=== PATIENT | female | born 1990 | race Caucasian/White ===

== ENCOUNTER 2016-07-04 11:28 | Emergency (ER) | payer MEDICAID, SELFPAY ==
--- NOTE | 2016-07-04 12:58 | EDDOCDS ---
Physician Documentation [facility] Name: Jerry Parrish Age: 26 yrs Sex: Female : 1990 Arrival Date: 07/04/2016 Time: 11:28 Bed Triage 3 Private MD: NO PRIMARY PHYSICIAN, . Disposition: 07/04/16 12:47 Discharged to Home/Self Care. Impression: Streptococcal pharyngitis. - Condition is Stable. - Discharge Instructions: Strep Throat. - Prescriptions for Amoxicillin 875 mg Oral Tablet - take 1 tablet by ORAL route every 12 hours for 10 days; 20 tablet. Prednisone 20 mg Oral Tablet - take 2 tablets by ORAL route once daily for 4 days; 8 tablet. magic mouthwash Mucous Membrane Solution - as directed 5 milliliters by ORAL route 3-4 times daily As needed GARGLE, SWISH, SPIT. MAALOX, LIQUID BENADRYL, VISCOUS LIDOCAINE. 1:1:1; 237 milliliter. - Work Release Form - 2 day, Medication Reconciliation, Local Pharmacy Hours form. - Follow up: Emergency Department; When: As needed; Reason: Worsening of conditions. Follow up: [facility]; When: Call to arrange an appointment; Reason: Recheck today's complaints, Continuance of care, To establish care. - Problem is new. - Symptoms are unchanged. Historical: - Allergies: No known drug Allergies; - Home Meds: 1. Excedrin Extra Strength 250-250-65 mg Oral tab 2 tablets PRN (Last dose: 07/04/2016 04:00) - PMHx: none; - PSHx: none; - Social history: Smoking status: Patient uses tobacco products, light tobacco smoker. No barriers to communication noted, The patient speaks fluent Colombian, Speaks appropriately for age. - Family history: Not pertinent. - : The pt / caregiver states he / she is not on anticoagulants. Home medication list is obtained from the patient. - Exposure Risk Screening:: None identified. 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 7 in. (170.18 cm) (R); Pain 11/24; 11:30 Body Mass Index 32.89 (95.25 kg, 170.18 cm) elp MDM: 11:35 Strep Screen, Nursing ordered. dt4 Signatures: Kirsten Vilchis,RN RN ck1 Radha KeitaRN RN cj Lelo Dennis, DONG PANathanael dt4 MTDD
--- NOTE | 2016-07-04 12:58 | EDDOCDS ---
Nurse's Notes [facility] Name: Jerry Parrish Age: 26 yrs Sex: Female : 1990 Arrival Date: 07/04/2016 Time: 11:28 Bed Triage 3 Private MD: NO PRIMARY PHYSICIAN, . Diagnosis: Streptococcal pharyngitis Presentation: 07/04 11:32 Presenting complaint: Patient states: Swollen, sore throat for three days. Risk ck1 factors: Stridor is not present. Drooling is not present. Shortness of breath is not present. Cellulitis is not present. Adult Sepsis Screening: The patient does not have new or worsening altered mentation. Patient's respiratory rate is less than 22. Systolic blood pressure is greater than 100. Patient has a qSOFA score of 0- Negative Sepsis Screen. Suicide/Homicide risk assessment- the patient denies having any suicidal and/or homicidal ideations and does not present with any other emotional, behavioral or mental health complaints. 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 Transition of care: patient was not received from another setting of care. 11:32 Acuity: RAMON Level 4 ck1 11:32 Method Of Arrival: Walkin/Carried/Asstd ck1 Triage Assessment: 11:34 General: Appears in no apparent distress, comfortable, Behavior is appropriate for age, ck1 cooperative. Pain: Location: throat Pain currently is 6 out of 10 on a pain scale. HIV screening NA for this visit Offered previously. EENT: Throat has patchy exudate has enlarged tonsils bilaterally. Respiratory: Respiratory effort is unlabored, Respiratory pattern is regular, symmetrical. Derm: Skin is intact, is healthy with good turgor, Skin is pink, warm & dry. Musculoskeletal: No deficits noted. 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 Excedrin Extra Strength 250-250-65 mg Oral tab 2 tablets PRN (Last dose: 07/04/2016 04:00) - PMHx: none; - PSHx: none; - Social history: Smoking status: Patient uses tobacco products, light tobacco smoker. No barriers to communication noted, The patient speaks fluent Venezuelan, Speaks appropriately for age. - Family history: Not pertinent. - : The pt / caregiver states he / she is not on anticoagulants. Home medication list is obtained from the patient. - Exposure Risk Screening:: None identified. Screenin:09 Screening information is obtained from the patient. Fall risk: No risks identified. mlb1 Assistance ADL's: requires no assistance with activities of daily living. Abuse/DV Screen: The patient / caregiver reports he/she is: not in a situation that causes fear, pain or injury. Nutritional screening: No deficits noted. Advance Directives: Currently, there is no health care proxy. home support is adequate. Assessment: 12:09 General: Appears in no apparent distress, Behavior is appropriate for age, cooperative. mlb1 Pain: Location: left aspect of posterior pharynx and right aspect of posterior pharynx Pain currently is 8 out of 10 on a pain scale. EENT: Throat is reddened has patchy exudate has enlarged tonsils with gag reflex present. Respiratory: Airway. 12:56 General: reviewed discharge instructions, answered questions, relayed concerns to JOSELINE ridley and obtained work excuse per patient request, denies further needs. Vital Signs: 11:30 BP 120 / 78; Pulse 116; Resp 20; Temp 99.3(O); Pulse Ox 100% on R/A; Weight 95.25 kg elp (R); Height 5 ft. 7 in. (170.18 cm) (R); Pain 6/10; 11:30 Body Mass Index 32.89 (95.25 kg, 170.18 cm) elp Vitals: 11:30 Log In Time: July 04, 2016 at 11:28. elp 12:07 Strep Screen is obtained and tested: Positive. mlb1 ED Course: 11:30 Patient visited by Shonda Zhang PCA. elp 11:30 NO PRIMARY PHYSICIAN, . is Private Physician. elp 11:30 Patient moved to Waiting elp 11:31 Patient visited by Shonda Zhang PCA. elp 11:31 Patient moved to Pre RCE elp 11:32 Triage Initiated ck1 12:02 Patient moved to Triage 3 mlb1 12:07 Patient visited by Earle Sarabia RN. mlb1 12:10 No IV's were initiated during this patient's visit. No procedures done that require mlb1 assistance. 12:34 [facility] dt4 12:34 Jerson Cantu MD is Attending Physician. dt4 12:34 Patient visited by Lelo Dennis PA-C. dt4 12:45 [facility] is Referral Physician. dt4 12:56 The patient / caregiver is instructed regarding the plan of care and ED course. [facility] Order Results: There are currently no results for this order. Outcome: 12:47 Discharge ordered by Provider. dt4 12:56 Discharge Assessment: Patient awake, alert and oriented x 3. No cognitive and/or [facility] functional deficits noted. Patient verbalized understanding of disposition instructions. patient administered narcotics - no. The following High Risk Discharge criteria are identified: None. Discharged to home ambulatory, with significant other. Condition: good Condition: stable. Discharge instructions given to patient, Instructed on discharge instructions, follow up and referral plans. medication usage, Demonstrated understanding of instructions, medications, Pt was receptive of discharge instructions/ teaching. Prescriptions given X 3, Work note provided to patient. No special radiology studies were completed. Property :Personal belongings accompany Pt. 12:58 Patient left the ED. [facility] Signatures: Earle Sarabia RN RN mlb1 Kirsten Vilchis RN RN ck1 Radha KeitaRN RN [facility] Shonda Zhang, INSECTICIDE MIXER INSECTICIDE MIXER elp Lelo Dennis PA-C PA-C dt4 MTDD
--- NOTE | 2016-07-06 13:58 | EDDOCDS ---
Physician Documentation [facility] Name: Jerry Parrish Age: 26 yrs Sex: Female : 1990 Arrival Date: 07/04/2016 Time: 11:28 Bed Triage 3 Private MD: NO PRIMARY PHYSICIAN, . Disposition: 07/04/16 12:47 Discharged to Home/Self Care. Impression: Streptococcal pharyngitis. - Condition is Stable. - Discharge Instructions: Strep Throat. - Prescriptions for Amoxicillin 875 mg Oral Tablet - take 1 tablet by ORAL route every 12 hours for 10 days; 20 tablet. Prednisone 20 mg Oral Tablet - take 2 tablets by ORAL route once daily for 4 days; 8 tablet. magic mouthwash Mucous Membrane Solution - as directed 5 milliliters by ORAL route 3-4 times daily As needed GARGLE, SWISH, SPIT. MAALOX, LIQUID BENADRYL, VISCOUS LIDOCAINE. 1:1:1; 237 milliliter. - Work Release Form - 2 day, Medication Reconciliation, Local Pharmacy Hours form. - Follow up: Emergency Department; When: As needed; Reason: Worsening of conditions. Follow up: [facility]; When: Call to arrange an appointment; Reason: Recheck today's complaints, Continuance of care, To establish care. - Problem is new. - Symptoms are unchanged. Historical: - Allergies: No known drug Allergies; - Home Meds: 1. Excedrin Extra Strength 250-250-65 mg Oral tab 2 tablets PRN (Last dose: 07/04/2016 04:00) - PMHx: none; - PSHx: none; - Social history: Smoking status: Patient uses tobacco products, light tobacco smoker. No barriers to communication noted, The patient speaks fluent Mozambican, Speaks appropriately for age. - Family history: Not pertinent. - : The pt / caregiver states he / she is not on anticoagulants. Home medication list is obtained from the patient. - Exposure Risk Screening:: None identified. 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 7 in. (170.18 cm) (R); Pain 6/10; 11:30 Body Mass Index 32.89 (95.25 kg, 170.18 cm) elp MDM: 11:35 Strep Screen, Nursing ordered. dt4 13:01 Financial registration complete. mm15 15:09 T-Sheet-- Draft Copy was scanned into [employer] and attached to record. gb 15:23 ON LICENSE OF [facility] Payment Agreement was scanned into [employer] and attached to record. mm15 Signatures: Deborah Pichardo, Reg Reg gb Genie-Kirsten Webb,RN RN ck1 Radha KeitaRN RN [facility] Zhao Grayson mm15 Lelo Dennis PA-C PA-C dt4 The chart was reviewed and I authenticate all verbal orders and agree with the evaluation and treatment provided.Attachments: 15:09 T-Sheet-- Draft Copy gb 15:23 ON LICENSE OF [facility] Payment Agreement mm15 Chart Complete MTDD
--- NOTE | 2016-07-06 13:58 | EDDOCDS ---
Nurse's Notes [facility] Name: Jerry Parrish Age: 26 yrs Sex: Female : 1990 Arrival Date: 07/04/2016 Time: 11:28 Bed Triage 3 Private MD: NO PRIMARY PHYSICIAN, . Diagnosis: Streptococcal pharyngitis Presentation: 07/04 11:32 Presenting complaint: Patient states: Swollen, sore throat for three days. Risk ck1 factors: Stridor is not present. Drooling is not present. Shortness of breath is not present. Cellulitis is not present. Adult Sepsis Screening: The patient does not have new or worsening altered mentation. Patient's respiratory rate is less than 22. Systolic blood pressure is greater than 100. Patient has a qSOFA score of 0- Negative Sepsis Screen. Suicide/Homicide risk assessment- the patient denies having any suicidal and/or homicidal ideations and does not present with any other emotional, behavioral or mental health complaints. Status: Patient is not a field services analyst or dependent. Transition of care: patient was not received from another setting of care. 11:32 Acuity: RAMON Level 4 ck1 11:32 Method Of Arrival: Walkin/Carried/Asstd ck1 Triage Assessment: 11:34 General: Appears in no apparent distress, comfortable, Behavior is appropriate for age, ck1 cooperative. Pain: Location: throat Pain currently is 6 out of 10 on a pain scale. HIV screening NA for this visit Offered previously. EENT: Throat has patchy exudate has enlarged tonsils bilaterally. Respiratory: Respiratory effort is unlabored, Respiratory pattern is regular, symmetrical. Derm: Skin is intact, is healthy with good turgor, Skin is pink, warm & dry. Musculoskeletal: No deficits noted. 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 Excedrin Extra Strength 250-250-65 mg Oral tab 2 tablets PRN (Last dose: 07/04/2016 04:00) - PMHx: none; - PSHx: none; - Social history: Smoking status: Patient uses tobacco products, light tobacco smoker. No barriers to communication noted, The patient speaks fluent Sao Tomean, Speaks appropriately for age. - Family history: Not pertinent. - : The pt / caregiver states he / she is not on anticoagulants. Home medication list is obtained from the patient. - Exposure Risk Screening:: None identified. Screenin:09 Screening information is obtained from the patient. Fall risk: No risks identified. mlb1 Assistance ADL's: requires no assistance with activities of daily living. Abuse/DV Screen: The patient / caregiver reports he/she is: not in a situation that causes fear, pain or injury. Nutritional screening: No deficits noted. Advance Directives: Currently, there is no health care proxy. home support is adequate. Assessment: 12:09 General: Appears in no apparent distress, Behavior is appropriate for age, cooperative. mlb1 Pain: Location: left aspect of posterior pharynx and right aspect of posterior pharynx Pain currently is 8 out of 10 on a pain scale. EENT: Throat is reddened has patchy exudate has enlarged tonsils with gag reflex present. Respiratory: Airway. 12:56 General: reviewed discharge instructions, answered questions, relayed concerns to JOSELINE ridley and obtained work excuse per patient request, denies further needs. Vital Signs: 11:30 BP 120 / 78; Pulse 116; Resp 20; Temp 99.3(O); Pulse Ox 100% on R/A; Weight 95.25 kg elp (R); Height 5 ft. 7 in. (170.18 cm) (R); Pain 6/10; 11:30 Body Mass Index 32.89 (95.25 kg, 170.18 cm) elp Vitals: 11:30 Log In Time: July 04, 2016 at 11:28. elp 12:07 Strep Screen is obtained and tested: Positive. mlb1 ED Course: 11:30 Patient visited by Shonda Zhang PCA. elp 11:30 NO PRIMARY PHYSICIAN, . is Private Physician. elp 11:30 Patient moved to Waiting elp 11:31 Patient visited by Shonda Zhang PCA. elp 11:31 Patient moved to Pre RCE elp 11:32 Triage Initiated ck1 12:02 Patient moved to Triage 3 mlb1 12:07 Patient visited by Earle Sarabia RN. mlb1 12:10 No IV's were initiated during this patient's visit. No procedures done that require mlb1 assistance. 12:34 Lelo Dennis [facility]C [facility]. dt4 12:34 Jerson Cantu MD is Attending Physician. dt4 12:34 Patient visited by Lelo Dennis PA-C. dt4 12:45 [facility] is Referral Physician. dt4 12:56 The patient / caregiver is instructed regarding the plan of care and ED course. [facility] 15:09 T-Sheet-- Draft Copy was scanned into [employer] and attached to record. 15:23 [facility] Payment Agreement was scanned into [employer] and attached to record. mm15 Order Results: There are currently no results for this order. Outcome: 12:47 Discharge ordered by Provider. dt4 12:56 Discharge Assessment: Patient awake, alert and oriented x 3. No cognitive and/or [facility] functional deficits noted. Patient verbalized understanding of disposition instructions. patient administered narcotics - no. The following High Risk Discharge criteria are identified: None. Discharged to home ambulatory, with significant other. Condition: good Condition: stable. Discharge instructions given to patient, Instructed on discharge instructions, follow up and referral plans. medication usage, Demonstrated understanding of instructions, medications, Pt was receptive of discharge instructions/ teaching. Prescriptions given X 3, Work note provided to patient. No special radiology studies were completed. Property :Personal belongings accompany Pt. 12:58 Patient left the ED. [facility] Signatures: Deborah Pichardo, Reg Reg Earle Sarabia RN RN mlb1 Kirsten Vilchis RN RN ck1 Radha Keita RN RN [facility] Zhao Grayson mm15 Patchen, Shonda, RIVET HEATER GAS RIVET HEATER GAS elp Lelo Dennis PA-C PA-C dt4 Chart Complete MTDD
--- NOTE | 2016-07-06 13:59 | EDDOCDS ---
Physician Documentation [facility] Name: Jerry Parrish Age: 26 yrs Sex: Female : 1990 Arrival Date: 07/04/2016 Time: 11:28 Bed Triage 3 Private MD: NO PRIMARY PHYSICIAN, . Disposition: 07/04/16 12:47 Discharged to Home/Self Care. Impression: Streptococcal pharyngitis. - Condition is Stable. - Discharge Instructions: Strep Throat. - Prescriptions for Amoxicillin 875 mg Oral Tablet - take 1 tablet by ORAL route every 12 hours for 10 days; 20 tablet. Prednisone 20 mg Oral Tablet - take 2 tablets by ORAL route once daily for 4 days; 8 tablet. magic mouthwash Mucous Membrane Solution - as directed 5 milliliters by ORAL route 3-4 times daily As needed GARGLE, SWISH, SPIT. MAALOX, LIQUID BENADRYL, VISCOUS LIDOCAINE. 1:1:1; 237 milliliter. - Work Release Form - 2 day, Medication Reconciliation, Local Pharmacy Hours form. - Follow up: Emergency Department; When: As needed; Reason: Worsening of conditions. Follow up: [facility]; When: Call to arrange an appointment; Reason: Recheck today's complaints, Continuance of care, To establish care. - Problem is new. - Symptoms are unchanged. Historical: - Allergies: No known drug Allergies; - Home Meds: 1. Excedrin Extra Strength 250-250-65 mg Oral tab 2 tablets PRN (Last dose: 07/04/2016 04:00) - PMHx: none; - PSHx: none; - Social history: Smoking status: Patient uses tobacco products, light tobacco smoker. No barriers to communication noted, The patient speaks fluent Swedish, Speaks appropriately for age. - Family history: Not pertinent. - : The pt / caregiver states he / she is not on anticoagulants. Home medication list is obtained from the patient. - Exposure Risk Screening:: None identified. 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 7 in. (170.18 cm) (R); Pain 6/10; 11:30 Body Mass Index 32.89 (95.25 kg, 170.18 cm) elp MDM: 11:35 Strep Screen, Nursing ordered. dt4 13:01 Financial registration complete. mm15 15:09 T-Sheet-- Draft Copy was scanned into [employer] and attached to record. gb 15:23 [facility] Payment Agreement was scanned into [employer] and attached to record. mm15 Signatures: Deborah Pichardo, Reg Reg gb Genie-Kirsten Webb,RN RN ck1 Radha KeitaRN RN [facility] Zhao Grayson mm15 Lelo Dennis PA-C PA-C dt4 The chart was reviewed and I authenticate all verbal orders and agree with the evaluation and treatment provided.Attachments: 15:09 T-Sheet-- Draft Copy gb 15:23 [facility] Payment Agreement mm15 Chart Complete MTDD
== END 2016-07-04 12:58 | disposition home or self-care (01) ==
LOC: M ED 11:28
DX: J02.0 Streptococcal pharyngitis (principal); F17.200 Nicotine dependence, unspecified, uncomplicated

== ENCOUNTER → 2017-12-04 | Outpatient (REF) | payer MEDICAID ==
[2017-12-04 13:33] LABS: ALBUMIN/GLOBULIN RATIO 1.11 (1.00-1.93); ALKALINE PHOSPHATASE 84 U/L (45-117); ALT/SGPT 73 U/L (12-78); ANION GAP 12 MEQ/L (8-16); AST/SGOT 26 U/L (7-37); BILIRUBIN,TOTAL 0.4 MG/DL (0.2-1.0); BLOOD UREA NITROGEN 10 MG/DL (7-18); CALCIUM LEVEL 8.6 MG/DL (8.5-10.1); CARBON DIOXIDE LEVEL 23 MEQ/L (21-32); CHLORIDE LEVEL 106 MEQ/L (98-107); CREATININE FOR GFR 0.66 MG/DL (0.55-1.30); GLOMERULAR FILTRATION RATE > 60.0 (>60); GLUCOSE, FASTING 89 MG/DL (70-100); POTASSIUM SERUM 4.2 MEQ/L (3.5-5.1); SODIUM LEVEL 141 MEQ/L (136-145); TOTAL PROTEIN 7.6 GM/DL (6.4-8.2)
== END ==
LOC: M LAB REF 12:30
DX: Z13.29 Encounter for screening for other suspected endocrine disorder (principal)

== ENCOUNTER → 2017-12-12 | Outpatient (CLI) | payer MEDICAID | LOC: M RAD 14:03 | DX: Z30.431 Encounter for routine checking of intrauterine contraceptive device (principal) | CPT/HCPCS: 76856 ==

== ENCOUNTER 2018-04-27 14:31 | Emergency (ER) | payer OTHER, MEDICAID ==
[2018-04-27 15:15] LABS: BASO % 0.5 % (0.0-1.0); EOS # 0.3 10^3/uL (0.0-0.50); EOS % 4.1 % (0.0-3.0); HEMATOCRIT 44.5 % (36.0-47.0); HEMOGLOBIN 14.9 g/dl (12.0-15.5); IMMATURE GRANULOCYTE % 0.2 % (0-3.0); LYMPH # 2.6 10^3/uL (1.5-6.5); LYMPH % 30.9 % (24.0-44.0); MEAN CORPUSCULAR HEMOGLOBIN 30.1 pg (27.0-33.0); MEAN CORPUSCULAR HGB CONC 33.5 g/dl (32.0-36.5); MEAN CORPUSCULAR VOLUME 89.9 fl (80.0-96.0); MONO # 0.4 10^3/uL (0.0-0.8); MONO % 4.3 % (0.0-5.0); PLATELET COUNT, AUTOMATED 282 10^3/uL (150-450); RED BLOOD COUNT 4.95 10^6/uL (4.00-5.40); RED CELL DISTRIBUTION WIDTH 12.3 % (11.5-14.5); WHITE BLOOD COUNT 8.4 10^3/uL (4.0-10.0)
[2018-04-27 15:28] LABS: D-DIMER QUANT 334.3 ng/ml (<500)
[2018-04-27 15:39] LABS: CONTROL LINE HCG INT CTR LINE PRESENT; HCG, SERUM QUALITATIVE NEGATIVE (NEGATIVE)
[2018-04-27 15:48] LABS: ALBUMIN 4.1 GM/DL (3.2-5.2); ALBUMIN/GLOBULIN RATIO 1.28 (1.00-1.93); ALKALINE PHOSPHATASE 89 U/L (45-117); ALT/SGPT 27 U/L (12-78); ANION GAP 6 MEQ/L (8-16); AST/SGOT 13 U/L (7-37); BILIRUBIN,DIRECT < 0.1 MG/DL (0.0-0.2); BILIRUBIN,TOTAL 0.4 MG/DL (0.2-1.0); BLOOD UREA NITROGEN 10 MG/DL (7-18); CALCIUM LEVEL 8.8 MG/DL (8.5-10.1); CARBON DIOXIDE LEVEL 26 MEQ/L (21-32); CHLORIDE LEVEL 108 MEQ/L (98-107); CK-MB VALUE MASS < 1.0 NG/ML (<3.6); CPK CREATINE PHOSPHOKINASE 58 U/L (26-192); CREATININE FOR GFR 0.62 MG/DL (0.55-1.30); GLOMERULAR FILTRATION RATE > 60.0 (>60); GLUCOSE, FASTING 74 MG/DL (70-100); MB/CK RELATIVE INDEX 1.72 (< OR =4); POTASSIUM SERUM 4.2 MEQ/L (3.5-5.1); SODIUM LEVEL 140 MEQ/L (136-145); TOTAL PROTEIN 7.3 GM/DL (6.4-8.2); TROPONIN I < 0.02 NG/ML (< 0.10)
== END 2018-04-27 16:15 | disposition home or self-care (01) ==
LOC: M ED 14:31
DX: F41.9 Anxiety disorder, unspecified (principal); F33.9 Major depressive disorder, recurrent, unspecified; Z79.899 Other long term (current) drug therapy; F17.210 Nicotine dependence, cigarettes, uncomplicated
CPT/HCPCS: 71046

== ENCOUNTER → 2018-04-30 | Outpatient (REF) | payer OTHER ==
[2018-04-30 19:04] LABS: ALBUMIN 3.8 GM/DL (3.2-5.2); ALBUMIN/GLOBULIN RATIO 1.19 (1.00-1.93); ALKALINE PHOSPHATASE 87 U/L (45-117); ALT/SGPT 37 U/L (12-78); ANION GAP 5 MEQ/L (8-16); AST/SGOT 19 U/L (7-37); BILIRUBIN,TOTAL 0.3 MG/DL (0.2-1.0); BLOOD UREA NITROGEN 12 MG/DL (7-18); CALCIUM LEVEL 8.7 MG/DL (8.5-10.1); CARBON DIOXIDE LEVEL 26 MEQ/L (21-32); CHLORIDE LEVEL 107 MEQ/L (98-107); CREATININE FOR GFR 0.56 MG/DL (0.55-1.30); GLOMERULAR FILTRATION RATE > 60.0 (>60); GLUCOSE, FASTING 90 MG/DL (70-100); POTASSIUM SERUM 3.9 MEQ/L (3.5-5.1); SODIUM LEVEL 138 MEQ/L (136-145)
[2018-04-30 19:14] LABS: FOLATE 8.7 NG/ML (>5.4); TOTAL 25(OH) VITAMIN D 12.6 NG/ML (30.0-100.0); VITAMIN B12 LEVEL 531 PG/ML (247-911)
== END ==
LOC: M LAB REF 18:42
DX: Z13.9 Encounter for screening, unspecified (principal); R20.0 Anesthesia of skin

== ENCOUNTER 2021-12-29 16:38 | Emergency (ER) | payer OTHER ==
[~2021-12-29] VITALS: Ht 170.2 cm; Wt 90.8 kg
[~2021-12-29 16:38] MED LIST: HYDR1CAP25 PO; LEXA1TAB2 PO
[2021-12-29 17:48] LABS: BASO % 0.4 % (0.0-1.0); EOS # 0.5 10^3/uL (0.0-0.5); EOS % 4.5 % (0.0-3.0); HEMATOCRIT 43.1 % (36.0-47.0); HEMOGLOBIN 14.6 g/dl (12.0-15.5); LYMPH # 2.8 10^3/uL (1.5-5.0); LYMPH % 25.5 % (24.0-44.0); MEAN CORPUSCULAR HGB CONC 33.9 g/dl (32.0-36.5); MEAN CORPUSCULAR VOLUME 88.5 fl (80.0-96.0); MONO # 0.6 10^3/uL (0.0-0.8); MONO % 5.1 % (2.0-8.0); NEUTROPHILS # 7.1 10^3/uL (1.5-8.5); NEUTROPHILS % 64.2 % (36.0-66.0); PLATELET COUNT, AUTOMATED 268 10^3/uL (150-450); RED BLOOD COUNT 4.87 10^6/uL (4.00-5.40)
[2021-12-29 18:18] LABS: HCG, SERUM QUALITATIVE NEGATIVE (NEGATIVE)
[2021-12-29 18:25] LABS: ALBUMIN 3.9 GM/DL (3.2-5.2); ALT/SGPT 29 U/L (12-78); BILIRUBIN,DIRECT 0.2 MG/DL (0.0-0.2); BILIRUBIN,TOTAL 0.3 MG/DL (0.2-1.0); BLOOD UREA NITROGEN 8 MG/DL (7-18); CALCIUM LEVEL 8.9 MG/DL (8.5-10.1); CARBON DIOXIDE LEVEL 23 MEQ/L (21-32); CHLORIDE LEVEL 112 MEQ/L (98-107); CREATININE FOR GFR 0.64 MG/DL (0.55-1.30); GLOMERULAR FILTRATION RATE > 60.0 (>60); GLUCOSE, FASTING 87 MG/DL (70-100); LIPASE 261 U/L (73-393); POTASSIUM SERUM 3.7 MEQ/L (3.5-5.1); SODIUM LEVEL 143 MEQ/L (136-145); TOTAL PROTEIN 7.2 GM/DL (6.4-8.2)
[2021-12-29] MEDS ORDERED: PANTOPRAZOLE 40MG VIAL IV ONE (20:25)
[2021-12-29] MEDS ORDERED: ONDANSETRON 4MG 2ML VIAL IV ONE (20:25)
[2021-12-29] MEDS ORDERED: NS 1,000 ML IV ONE (20:25)
[2021-12-29] MEDS ORDERED: ISOVUE-370 76% 100ML VIAL As Ordered ONE (20:27)
[2021-12-29 22:50] VITALS: BP 107/63
[2021-12-29] MEDS ORDERED: HYDR50TA70 PO (23:23)
[2021-12-29] MEDS ORDERED: PROT1TAB2 PO (23:23)
[2021-12-29] MEDS ORDERED: ONDA4TAB6 PO (23:23)
== END 2021-12-29 23:54 | disposition home or self-care (01) ==
LOC: M ED 16:38
DX: K29.70 Gastritis, unspecified, without bleeding (principal); F41.9 Anxiety disorder, unspecified; F31.9 Bipolar disorder, unspecified; F43.10 Post-traumatic stress disorder, unspecified; Z79.899 Other long term (current) drug therapy
CPT/HCPCS: 74177; 80048; 80076; 81001; 83690; 84703; 85025; 96361; 96374; 96375; 99284; C9113; J2405; Q9967

== ENCOUNTER 2022-07-10 01:29 | Observation (INO) | payer OTHER ==
[~2022-07-10] VITALS: Ht 170.2 cm; Wt 88.6 kg
[~2022-07-10 01:29] MED LIST changes: +HYDR50TA70 PO; +ONDA4TAB6 PO; +PROT1TAB2 PO
[2022-07-10 02:18] LABS: BASO % 0.3 % (0.0-1.0); EOS # 0.2 10^3/uL (0.0-0.5); EOS % 1.7 % (0.0-3.0); HEMATOCRIT 45.3 % (36.0-47.0); HEMOGLOBIN 15.2 g/dl (12.0-15.5); LYMPH # 1.9 10^3/uL (1.5-5.0); LYMPH % 15.1 % (24.0-44.0); MEAN CORPUSCULAR HEMOGLOBIN 30.1 pg (27.0-33.0); MEAN CORPUSCULAR HGB CONC 33.6 g/dl (32.0-36.5); MEAN CORPUSCULAR VOLUME 89.7 fl (80.0-96.0); MONO # 0.6 10^3/uL (0.0-0.8); MONO % 4.5 % (2.0-8.0); NEUTROPHILS # 9.9 10^3/uL (1.5-8.5); NEUTROPHILS % 77.9 % (36.0-66.0); PLATELET COUNT, AUTOMATED 304 10^3/uL (150-450); RED BLOOD COUNT 5.05 10^6/uL (4.00-5.40); WHITE BLOOD COUNT 12.7 10^3/uL (4.0-10.0)
[2022-07-10 02:40] LABS: LIPASE 42 U/L (12-53)
[2022-07-10 02:41] LABS: HCG, SERUM QUALITATIVE NEGATIVE (NEGATIVE)
[2022-07-10 02:42] LABS: BILIRUBIN,DIRECT 1.7 MG/DL (<0.4)
[2022-07-10 02:43] LABS: ALBUMIN 4.3 G/DL (3.2-5.2); ALKALINE PHOSPHATASE 147 U/L (46-116); ALT/SGPT 749 U/L (7.0-40); AST/SGOT 470 U/L (<34); BLOOD UREA NITROGEN 11 MG/DL (9-23); CALCIUM LEVEL 9.3 MG/DL (8.5-10.1); CARBON DIOXIDE LEVEL 23 MMOL/L (20-31); CHLORIDE LEVEL 104 MMOL/L (98-107); GLOMERULAR FILTRATION RATE > 60.0 (>60); GLUCOSE, FASTING 117 MG/DL (60-100); POTASSIUM SERUM 3.6 MMOL/L (3.5-5.1); SODIUM LEVEL 139 MMOL/L (136-145); TOTAL PROTEIN 7.9 G/DL (5.7-8.2)
[2022-07-10] MEDS ORDERED: MORPHINE 4 MG/ML 1ML VIAL IV ONE (04:40)
[2022-07-10] MEDS ORDERED: ISOVUE-370 76% 100ML VIAL As Ordered ONE (04:40)
[2022-07-10] MEDS ORDERED: ONDANSETRON 4MG 2ML VIAL IV ONE ×2 (04:40→07:55)
[2022-07-10] MEDS ORDERED: NS 1,000 ML IV ONE (04:40)
[2022-07-10] MEDS ORDERED: PIPERACILLIN/TAZOBACTAM SOD 3.375 GM in D5W MINI-BAG PLUS 50 ML IV ONE (07:30)
[2022-07-10] MEDS: MORPHINE 2 MG/ML 1ML VIAL IV PRN ×2 (08:09→12:27)
[2022-07-10] MEDS ORDERED: HOME MED LIST COMPLETE! XX SCH (12:05)
[2022-07-10] MEDS: LR 1,000 ML IV SCH ×4 (12:15→21:42)
[2022-07-10] MEDS ORDERED: ONDANSETRON 4MG 2ML VIAL IV PRN ×2 (13:40→18:30)
[2022-07-10] MEDS ORDERED: MORPHINE 4 MG/ML 1ML VIAL IV PRN (13:40)
[2022-07-10] MEDS ORDERED: ISOVUE-300 61% 100ML VIAL As Ordered ONE (13:44)
[2022-07-10] MEDS: PIPERACILLIN/TAZOBACTAM SOD 3.375 GM in D5W MINI-BAG PLUS 50 ML IV SCH ×2 (14:53→21:42)
[2022-07-10] MEDS ORDERED: fentaNYL 100 MCG/2 ML INJECTION As Ordered ONE (15:41)
[2022-07-10] MEDS ORDERED: propofoL 200 MG/20 ML VIAL As Ordered ONE (15:41)
[2022-07-10] MEDS ORDERED: LIDOCAINE 2% 100MG/5ML SDV (FOR ANES.) As Ordered ONE (15:41)
[2022-07-10] MEDS ORDERED: MIDAZOLAM INJ 2MG/2ML VIAL As Ordered ONE (15:41)
[2022-07-10] MEDS ORDERED: ROCURONIUM BROMIDE 50MG/5ML VIAL As Ordered ONE (15:41)
[2022-07-10] MEDS ORDERED: ONDANSETRON 4MG 2ML VIAL As Ordered ONE (17:27)
[2022-07-10] MEDS ORDERED: KETOROLAC 60MG 2ML VIAL As Ordered ONE (17:27)
[2022-07-10] MEDS ORDERED: SUGAMMADEX SODIUM 500 MG/5 ML VIAL (BRIDION) As Ordered ONE (17:32)
[2022-07-10] MEDS ORDERED: ACETAMINOPHEN 1000MG 100ML IV BAG As Ordered ONE (17:34)
[2022-07-10] MEDS ORDERED: METOCLOPRAMIDE INJ 10MG/2ML VIAL IV PRN (18:30)
[2022-07-10] MEDS ORDERED: LR 1,000 ML IV SCH (18:30)
[2022-07-10] MEDS ORDERED: oxyCODONE 5MG TAB PO PRN (18:30)
[2022-07-10] MEDS ORDERED: fentaNYL 100 MCG/2 ML INJECTION IV PRN (18:30)
[2022-07-10 20:00] VITALS: BP 117/70
[2022-07-10 20:30] VITALS: BP 106/55
[2022-07-10 21:00] VITALS: BP 120/66
[2022-07-10 22:00] VITALS: BP 108/58
[2022-07-10 23:00] VITALS: BP 119/66
[2022-07-11] VITALS: BP 120/65
[2022-07-11 01:00] VITALS: BP 118/58
[2022-07-11] MEDS: PIPERACILLIN/TAZOBACTAM SOD 3.375 GM in D5W MINI-BAG PLUS 50 ML IV SCH ×2 (02:12→09:00)
[2022-07-11 04:00] VITALS: BP 111/57
[2022-07-11] MEDS: LR 1,000 ML IV SCH (05:33)
[2022-07-11 06:17] LABS: HEMATOCRIT 36.3 % (36.0-47.0); MEAN CORPUSCULAR HEMOGLOBIN 30.6 pg (27.0-33.0); MEAN CORPUSCULAR HGB CONC 33.3 g/dl (32.0-36.5); MEAN CORPUSCULAR VOLUME 91.9 fl (80.0-96.0); PLATELET COUNT, AUTOMATED 204 10^3/uL (150-450); RED BLOOD COUNT 3.95 10^6/uL (4.00-5.40); WHITE BLOOD COUNT 10.3 10^3/uL (4.0-10.0)
[2022-07-11 06:19] LABS: HEMOGLOBIN 12.1 g/dl (12.0-15.5)
[2022-07-11 06:26] LABS: ALBUMIN 3.1 G/DL (3.2-5.2); ALKALINE PHOSPHATASE 120 U/L (46-116); ALT/SGPT 506 U/L (7.0-40); AST/SGOT 118 U/L (<34); BILIRUBIN,TOTAL 1.2 MG/DL (0.3-1.2); BLOOD UREA NITROGEN 9 MG/DL (9-23); CARBON DIOXIDE LEVEL 23 MMOL/L (20-31); CHLORIDE LEVEL 106 MMOL/L (98-107); CREATININE FOR GFR 0.64 MG/DL (0.55-1.30); GLOMERULAR FILTRATION RATE > 60.0 (>60); GLUCOSE, FASTING 90 MG/DL (60-100); SODIUM LEVEL 138 MMOL/L (136-145); TOTAL PROTEIN 5.6 G/DL (5.7-8.2)
[2022-07-11 10:00] VITALS: BP 133/75
[2022-07-11] MEDS ORDERED: PROTPAK PO (10:14)
[2022-07-11] MEDS ORDERED: CEPH500C PO (17:48)
== END 2022-07-11 11:26 | disposition home or self-care (01) ==
LOC: M ED 01:29 → M ED INP 01:30 → M MSPAV 19:50
PROVIDERS: ADMIT Family Medicine; ATTEND Family Medicine
DX: K80.51 Calculus of bile duct without cholangitis or cholecystitis with obstruction (principal); K83.8 Other specified diseases of biliary tract; R93.2 Abnormal findings on diagnostic imaging of liver and biliary tract; R78.81 Bacteremia; K76.0 Fatty (change of) liver, not elsewhere classified; R11.0 Nausea; F32.A Depression, unspecified; F41.9 Anxiety disorder, unspecified; F43.10 Post-traumatic stress disorder, unspecified
CPT/HCPCS: 36415; 43265; 43274; 71275; 74177; 74181; 74330; 76705; 80048; 80053; 80076; 83605; 83690; 84703; 85025; 85027; 87040; 87077; 87635; 93005; 93041; 94760; 96361; 96365; 96366; 96375; 96376; 99285; C2625; J0131; J1100; J1885; J2250; J2270; J2405; J2543; J3010; Q9967

== ENCOUNTER 2022-10-12 07:37 | Day surgery (SDC) | payer OTHER ==
[~2022-10-12] VITALS: Ht 170.2 cm; Wt 82.0 kg
[~2022-10-12 07:37] MED LIST changes: +AMPICILLIN SOD/SULBACTAM SOD 3 GM in D5W MINI-BAG PLUS 100 ML IV ONE; +CEPH500C PO; +CelecoXIB 400 MG CAP PO ONE; +INDOCYANINE GREEN 25MG VIAL (IC-GREEN) IV ONE; +PROTPAK PO
[2022-10-12] MEDS ORDERED: LR 1,000 ML IV SCH (08:00)
[2022-10-12] MEDS ORDERED: propofoL 200 MG/20 ML VIAL As Ordered ONE (08:31)
[2022-10-12] MEDS ORDERED: fentaNYL 250 MCG/5 ML INJECTION As Ordered ONE (08:31)
[2022-10-12] MEDS ORDERED: ROCURONIUM BROMIDE 50MG/5ML VIAL As Ordered ONE (08:31)
[2022-10-12] MEDS ORDERED: LIDOCAINE 2% 100MG/5ML SDV (FOR ANES.) As Ordered ONE (08:31)
[2022-10-12] MEDS ORDERED: MIDAZOLAM INJ 2MG/2ML VIAL As Ordered ONE (08:32)
[2022-10-12] MEDS ORDERED: BUPIVACAINE HCL 0.25% 30ML VIAL As Ordered ONE (09:46)
[2022-10-12] MEDS ORDERED: LIDOCAINE 1% SDV 30ML VIAL As Ordered ONE (09:46)
[2022-10-12] MEDS ORDERED: ONDANSETRON 4MG 2ML VIAL As Ordered ONE (10:51)
[2022-10-12] MEDS ORDERED: KETOROLAC 60MG 2ML VIAL As Ordered ONE (10:51)
[2022-10-12] MEDS ORDERED: METOCLOPRAMIDE INJ 10MG/2ML VIAL As Ordered ONE (10:51)
[2022-10-12] MEDS ORDERED: SUGAMMADEX SODIUM 500 MG/5 ML VIAL (BRIDION) As Ordered ONE (10:54)
[2022-10-12] MEDS ORDERED: oxyCODONE 5MG TAB PO PRN (11:55)
[2022-10-12] MEDS ORDERED: fentaNYL 100 MCG/2 ML INJECTION IV PRN (11:55)
[2022-10-12] MEDS ORDERED: ONDANSETRON 4MG 2ML VIAL IV PRN (11:55)
[2022-10-12] MEDS: HYDROMORPHONE HCL 0.5 MG/ 0.5 ML SYRINGE IV PRN ×3 (12:01→12:12)
[2022-10-12] MEDS ORDERED: NORCO, ANEXSIA 5/325MG TABLET (HYDROcodone/ACETAMINOPHEN) PO PRN ×2 (12:05)
[2022-10-12 12:50] VITALS: BP 130/62
[2022-10-12] MEDS ORDERED: KETOROLAC 30 MG/ML 1ML VIAL IV SCH (18:00)
== END 2022-10-12 13:35 | disposition home or self-care (01) ==
LOC: M SDC 07:37
PROVIDERS: ATTEND Surgery
DX: K80.10 Calculus of gallbladder with chronic cholecystitis without obstruction (principal); F41.9 Anxiety disorder, unspecified; F32.A Depression, unspecified; K76.0 Fatty (change of) liver, not elsewhere classified; F17.210 Nicotine dependence, cigarettes, uncomplicated
CPT/HCPCS: 47562; 64488; 81025; 88304; J0295; J1100; J1170; J1885; J2250; J2405; J2765; J3010; Q9968; S2900

== ENCOUNTER → 2022-10-30 | Day surgery (SDC) | payer OTHER ==
[~2022-10-30] VITALS: Ht 170.2 cm; Wt 83.9 kg
[~2022-10-30] MED LIST changes: +ACETAMINOPHEN 1000MG 100ML IV BAG As Ordered ONE; -AMPICILLIN SOD/SULBACTAM SOD 3 GM in D5W MINI-BAG PLUS 100 ML IV ONE; -CelecoXIB 400 MG CAP PO ONE; +HYDR-3713 PO; -INDOCYANINE GREEN 25MG VIAL (IC-GREEN) IV ONE; +ISOVUE-300 61% 100ML VIAL As Ordered ONE; +KETOROLAC 60MG 2ML VIAL As Ordered ONE; +LIDOCAINE 2% 100MG/5ML SDV (FOR ANES.) As Ordered ONE; +MIDAZOLAM INJ 2MG/2ML VIAL As Ordered ONE; +MORPHINE 2 MG/ML 1ML VIAL IV PRN; +ONDANSETRON 4MG 2ML VIAL As Ordered ONE; +ONDANSETRON 4MG 2ML VIAL IV PRN; +ROCURONIUM BROMIDE 50MG/5ML VIAL As Ordered ONE; +SUGAMMADEX SODIUM 500 MG/5 ML VIAL (BRIDION) As Ordered ONE; +fentaNYL 100 MCG/2 ML INJECTION As Ordered ONE; +fentaNYL 100 MCG/2 ML INJECTION IV PRN; +oxyCODONE 5MG TAB PO PRN; +propofoL 200 MG/20 ML VIAL As Ordered ONE
[2022-10-30 18:07] VITALS: BP 126/80
== END | disposition home or self-care (01) ==
LOC: M SDC 14:07
PROVIDERS: ATTEND Internal Medicine Gastroenterology
DX: Z46.59 Encounter for fitting and adjustment of other gastrointestinal appliance and device (principal); R93.2 Abnormal findings on diagnostic imaging of liver and biliary tract; K80.70 Calculus of gallbladder and bile duct without cholecystitis without obstruction; R10.11 Right upper quadrant pain; K21.9 Gastro-esophageal reflux disease without esophagitis; F41.9 Anxiety disorder, unspecified; F32.A Depression, unspecified; Z79.899 Other long term (current) drug therapy; F17.210 Nicotine dependence, cigarettes, uncomplicated; Z79.891 Long term (current) use of opiate analgesic; Z91.048 Other nonmedicinal substance allergy status
CPT/HCPCS: 43262; 43264; 74330; 81025; C1889; J0131; J1100; J1885; J2250; J2405; J3010; Q9967

== ENCOUNTER → 2023-03-06 | Outpatient (REF) | payer OTHER ==
[~2023-03-06] MED LIST changes: -ACETAMINOPHEN 1000MG 100ML IV BAG As Ordered ONE; -ISOVUE-300 61% 100ML VIAL As Ordered ONE; -KETOROLAC 60MG 2ML VIAL As Ordered ONE; -LIDOCAINE 2% 100MG/5ML SDV (FOR ANES.) As Ordered ONE; -MIDAZOLAM INJ 2MG/2ML VIAL As Ordered ONE; -MORPHINE 2 MG/ML 1ML VIAL IV PRN; -ONDANSETRON 4MG 2ML VIAL As Ordered ONE; -ONDANSETRON 4MG 2ML VIAL IV PRN; -ROCURONIUM BROMIDE 50MG/5ML VIAL As Ordered ONE; -SUGAMMADEX SODIUM 500 MG/5 ML VIAL (BRIDION) As Ordered ONE; -fentaNYL 100 MCG/2 ML INJECTION As Ordered ONE; -fentaNYL 100 MCG/2 ML INJECTION IV PRN; -oxyCODONE 5MG TAB PO PRN; -propofoL 200 MG/20 ML VIAL As Ordered ONE
[2023-03-06 18:17] LABS: HEMOGLOBIN A1c 4.4 % (4.0-6.0)
[2023-03-06 19:24] LABS: ALBUMIN 4.1 G/DL (3.2-5.2); ALKALINE PHOSPHATASE 67 U/L (46-116); ALT/SGPT 19 U/L (7.0-40); AST/SGOT 11 U/L (<34); BILIRUBIN,TOTAL 0.5 MG/DL (0.3-1.2); BLOOD UREA NITROGEN 11 MG/DL (9-23); CALCIUM LEVEL 8.8 MG/DL (8.5-10.1); CARBON DIOXIDE LEVEL 28 MMOL/L (20-31); CHLORIDE LEVEL 107 MMOL/L (98-107); CHOLESTEROL LEVEL 143 MG/DL (<200); CHOLESTEROL RISK RATIO 2.37 (<5); CREATININE FOR GFR 0.63 MG/DL (0.55-1.30); GLOMERULAR FILTRATION RATE > 60.0 (>60); GLUCOSE, FASTING 84 MG/DL (60-100); HDL CHOLESTEROL 60.2 MG/DL (>40); LDL CHOLESTEROL 75.2 MG/DL (<100); NON-HDL-C 82.8 MG/DL; POTASSIUM SERUM 4.8 MMOL/L (3.5-5.1); SODIUM LEVEL 141 MMOL/L (136-145); TOTAL PROTEIN 7.2 G/DL (5.7-8.2); TRIGLYCERIDES LEVEL 38 MG/DL (<150)
[2023-03-06 19:26] LABS: THYROID STIMULATING HORMONE 0.798 uIU/ML (0.55-4.78)
[2023-03-06 19:52] LABS: HIV 1&2 SCREEN NEGATIVE (NEGATIVE)
== END ==
LOC: M LAB REF 16:35
PROVIDERS: ATTEND Family Medicine Addiction Medicine
DX: E66.3 Overweight (principal)

== ENCOUNTER 2023-03-28 15:51 | Emergency (ER) | payer OTHER ==
[~2023-03-28] VITALS: Ht 170.2 cm; Wt 84.5 kg
[2023-03-28] MEDS ORDERED: medical marijuana (16:12)
[2023-03-28] MEDS ORDERED: IBUP-1022 PO (18:47)
[2023-03-28 18:50] VITALS: BP 125/77; TEMP 97.6; O2SAT 98
[2023-03-28] MEDS ORDERED: IBUPROFEN 600MG TAB PO ONE (18:50)
[2023-03-28] MEDS ORDERED: methocarbamoL 500 MG TAB PO ONE (18:50)
[2023-03-28] MEDS ORDERED: METH-1164 PO (18:54)
== END 2023-03-28 18:55 | disposition home or self-care (01) ==
LOC: M ED 15:51
DX: S80.01XA Contusion of right knee, initial encounter (principal); M54.30 Sciatica, unspecified side; W01.0XXA Fall on same level from slipping, tripping and stumbling without subsequent striking against object, initial encounter; E11.9 Type 2 diabetes mellitus without complications; F12.10 Cannabis abuse, uncomplicated; F10.10 Alcohol abuse, uncomplicated; Z91.02 Food additives allergy status; Z91.048 Other nonmedicinal substance allergy status; Z79.1 Long term (current) use of non-steroidal anti-inflammatories (NSAID); Z79.899 Other long term (current) drug therapy; Y92.9 Unspecified place or not applicable; Y93.89 Activity, other specified; Y99.0 Civilian activity done for income or pay

== ENCOUNTER → 2023-08-29 | Outpatient (CLI) | payer OTHER ==
[~2023-08-29] MED LIST changes: +IBUP-1022 PO; +METH-1164 PO; +medical marijuana
== END ==
LOC: M RAD 13:11
PROVIDERS: ATTEND Physician Assistant
DX: R10.2 Pelvic and perineal pain (principal); Z97.5 Presence of (intrauterine) contraceptive device

== ENCOUNTER 2024-08-27 18:05 | Emergency (ER) | payer OTHER ==
[~2024-08-27] VITALS: Ht 167.6 cm; Wt 88.6 kg
[~2024-08-27 18:05] MED LIST changes: +ONDA-282 PO; -ONDA4TAB6 PO
[2024-08-27 18:15] VITALS: TEMP 98.8
[2024-08-27] MEDS: KETOROLAC 30 MG/ML 1ML VIAL IV ONE ×2 (19:45→20:30)
[2024-08-27 19:55] LABS: BASO % 0.1 % (0.0-1.0); EOS # 0.4 10^3/uL (0.0-0.5); EOS % 2.6 % (0.0-3.0); HEMATOCRIT 42.6 % (36.0-47.0); HEMOGLOBIN 14.5 g/dl (12.0-15.5); LYMPH # 1.1 10^3/uL (1.5-5.0); LYMPH % 7.1 % (24.0-44.0); MEAN CORPUSCULAR HEMOGLOBIN 30.4 pg (27.0-33.0); MEAN CORPUSCULAR VOLUME 89.3 fl (80.0-96.0); MONO # 0.9 10^3/uL (0.0-0.8); MONO % 5.8 % (2.0-8.0); NEUTROPHILS # 12.3 10^3/uL (1.5-8.5); NEUTROPHILS % 84.1 % (36.0-66.0); PLATELET COUNT, AUTOMATED 287 10^3/uL (150-450); RED BLOOD COUNT 4.77 10^6/uL (4.00-5.40); WHITE BLOOD COUNT 14.7 10^3/uL (4.0-10.0)
[2024-08-27 20:17] LABS: LIPASE 34 U/L (12-53)
[2024-08-27 20:18] LABS: CK-MB VALUE MASS < 1.0 NG/ML (<3.6)
[2024-08-27 20:20] LABS: ALKALINE PHOSPHATASE 90 U/L (35-104); ALT/SGPT 21 U/L (7.0-40); AST/SGOT 11 U/L (<34); BILIRUBIN,DIRECT 0.2 MG/DL (<0.4); BILIRUBIN,TOTAL 0.6 MG/DL (0.3-1.2); BLOOD UREA NITROGEN 6 MG/DL (9-23); CALCIUM LEVEL 8.7 MG/DL (8.5-10.1); CARBON DIOXIDE LEVEL 26 MMOL/L (20-31); CHLORIDE LEVEL 107 MMOL/L (98-107); CPK CREATINE PHOSPHOKINASE 61 U/L (34-145); CREATININE FOR GFR 0.71 MG/DL (0.55-1.30); GLOMERULAR FILTRATION RATE > 60.0 (>60); GLUCOSE, FASTING 91 MG/DL (60-100); MB/CK RELATIVE INDEX 1.63 (< OR =4); POTASSIUM SERUM 4.4 MMOL/L (3.5-5.1); SODIUM LEVEL 142 MMOL/L (136-145); TOTAL PROTEIN 7.3 G/DL (5.7-8.2)
[2024-08-27] MEDS: PANTOPRAZOLE 40MG VIAL IV ONE (20:38)
[2024-08-27] MEDS: ONDANSETRON 4MG 2ML VIAL IV ONE (20:39)
[2024-08-27] MEDS ORDERED: ISOVUE-370 76% 100ML VIAL As Ordered ONE (21:35)
[2024-08-27] MEDS: NS 500 ML IV ONE (22:45)
[2024-08-28] MEDS ORDERED: ONDA-282 PO
[2024-08-28] MEDS ORDERED: SUCR1TA PO
[2024-08-28] MEDS ORDERED: OMEP40CA4 PO
[2024-08-28] MEDS: SUCRALFATE SUSP 1GM/10ML UD PO ONE
[2024-08-28 00:04] VITALS: BP 113/60; O2SAT 99
== END 2024-08-28 00:13 | disposition home or self-care (01) ==
LOC: M ED 18:05
DX: R10.9 Unspecified abdominal pain (principal); Z91.018 Allergy to other foods; Z91.048 Other nonmedicinal substance allergy status; Z79.83 Long term (current) use of bisphosphonates; Z79.1 Long term (current) use of non-steroidal anti-inflammatories (NSAID); Z79.899 Other long term (current) drug therapy
CPT/HCPCS: 71046; 71260; 74177; 80048; 80076; 82550; 82553; 83690; 84484; 84702; 85025; 85379; 87486; 87581; 87633; 87798; 93005; 96361; 96374; 96375; 99284; J1885; J2405; J2470; Q9967